=== PATIENT | female | born 1955 | race Caucasian/White ===

== ENCOUNTER → 2023-09-25 08:12 | Outpatient (REF) | payer BC, SELFPAY | LOC: HWRAD 08:12 | PROVIDERS: ATTENDING PHYSICIAN Physician Assistant | DX: R91.1 Solitary pulmonary nodule (principal) | CPT/HCPCS: 71250 ==

== ENCOUNTER → 2024-03-13 07:42 | Outpatient (REF) | payer BC, SELFPAY ==
[2024-03-13 09:25] LABS: % Basophils 0.7 % (0-2); % Eosinophils 1.8 % (0-6); % Immature Granulocytes 0.4 % (0-0.5); % Lymphocytes 18.4 % (20.5-51.1); % Monocytes 5.6 % (1.7-9.3); % Neutrophils 73.1 % (42.2-75.2); Absolute Basophils 0.1 10^3/uL (0-0.2); Absolute Eosinophils 0.2 10^3/uL (0-0.7); Absolute Lymphocytes 1.6 10^3/uL (1.2-3.4); Absolute Monocytes 0.5 10^3/uL (0.1-0.6); Absolute Neutrophils 6.2 10^3/uL (1.4-6.5); Hematocrit 41.3 % (37.0-47.0); Hemoglobin 14.8 g/dL (12.0-16.0); Mean Corp Hgb Conc. 35.8 g/dL (33.0-37.0); Mean Corpuscular Hgb 30.6 pg (27.0-31.0); Mean Corpuscular Volume 85.5 fL (81.0-99.0); Mean Platelet Volume 9.2 fL (7.4-10.4); Nucleated Red Blood Cells % 0 %; Platelet Count 218 10^3/uL (130-400); Red Blood Cell Count 4.83 10^6/uL (4.20-5.40); Red Cell Dist. Width 12.8 % (11.5-14.5); White Blood Cell Count 8.4 10^3/uL (4.8-10.8)
[2024-03-13 10:34] LABS: TSH Reflex To Free T4 3.03 uIU/ml (0.47-4.68)
[2024-03-13 11:26] LABS: ALT (SGPT) 28 U/L (0-35); AST (SGOT) 25 U/L (14-36); Albumin 4.5 g/dl (3.5-5.0); Alkaline Phosphatase 82 U/L (38-126); Blood Urea Nitrogen 15 mg/dl (7-17); Calcium 9.8 mg/dl (8.4-10.2); Carbon Dioxide 27 mmol/L (22-30); Chloride 103 mmol/L (98-107); Glucose 137 mg/dl (70-99); HDL Cholesterol 59 mg/dl; LDL Cholesterol, Calculated 145 mg/dl; Potassium 4.9 mmol/L (3.5-5.1); Sodium 142 mmol/L (135-145); Total Cholesterol 229 mg/dl (50-199); Total Protein 7.3 g/dl (6.3-8.2); Triglyceride 125 mg/dl (10-149); Very Low Density Lipoprotein 25 mg/dl (0-30); eGFR > 60.00
[2024-03-13 13:15] LABS: Glycohemoglobin (HgbA1c) 5.8 % (4.0-5.6)
== END ==
LOC: HWLAB 07:42
PROVIDERS: ATTENDING PHYSICIAN Physician Assistant
DX: R73.01 Impaired fasting glucose (principal); J45.40 Moderate persistent asthma, uncomplicated; E66.9 Obesity, unspecified; I10 Essential (primary) hypertension; Z13.29 Encounter for screening for other suspected endocrine disorder; Z13.220 Encounter for screening for lipoid disorders
CPT/HCPCS: 36415; 80053; 80061; 83036; 84443; 85025

== ENCOUNTER → 2024-03-17 07:04 | Outpatient (REF) | payer BC, SELFPAY | LOC: HWWDC 07:04 | PROVIDERS: ATTENDING PHYSICIAN Physician Assistant; REFERRING PHYSICIAN Obstetrics & Gynecology Gynecology | DX: Z12.31 Encounter for screening mammogram for malignant neoplasm of breast (principal) | CPT/HCPCS: 77063; 77067 ==

== ENCOUNTER → 2024-05-05 11:55 | Outpatient (REF) | payer BC, SELFPAY ==
[2024-05-14 01:10] LABS: HPV, High Risk Not Detected; HPV, High Risk Source Cervical
== END ==
LOC: CPAP 11:55
PROVIDERS: ATTENDING PHYSICIAN Obstetrics & Gynecology Gynecology
DX: Z01.419 Encounter for gynecological examination (general) (routine) without abnormal findings (principal)
CPT/HCPCS: 87624; G0123

== ENCOUNTER → 2024-05-12 11:44 | Outpatient (REF) | payer BC, SELFPAY | LOC: HWCARD 11:44 | PROVIDERS: ATTENDING PHYSICIAN Physician Assistant | DX: R07.89 Other chest pain (principal) | CPT/HCPCS: 93005 ==

== ENCOUNTER → 2024-05-13 13:52 | Outpatient (REF) | payer BC, SELFPAY | LOC: HWRCS 13:52 | PROVIDERS: ATTENDING PHYSICIAN Physician Assistant; REFERRING PHYSICIAN Internal Medicine | DX: R07.89 Other chest pain (principal); R94.31 Abnormal electrocardiogram [ECG] [EKG]; I10 Essential (primary) hypertension | CPT/HCPCS: 93017; 93306 ==

== ENCOUNTER → 2024-05-27 08:10 | Outpatient (REF) | payer BC, SELFPAY | LOC: HWRAD 08:10 | PROVIDERS: ATTENDING PHYSICIAN Obstetrics & Gynecology Gynecology; FAMILY PHYSICIAN Physician Assistant | DX: N83.209 Unspecified ovarian cyst, unspecified side (principal) | CPT/HCPCS: 76830; 76856 ==

== ENCOUNTER 2024-06-25 06:09 | Day surgery (SDC) | payer BC, SELFPAY ==
[2024-06-25 06:10] VITALS: BMI 31.6
[2024-06-25 06:12] VITALS: BP 139/82
[2024-06-25] MEDS: ALCAINE 0.5% EYE DROPS 1 DROP OPHTH (06:17)
[2024-06-25] MEDS: NEO-SYNEPHRINE 2.5% OPH SOL. 1 DROP OPHTH ×3 (06:18→06:35)
[2024-06-25] MEDS: MYDRIACYL 1 DROP OPHTH ×3 (06:18→06:35)
[2024-06-25] MEDS: PRED FORTE 1% EYE DROPS 1 DROP OPHTH ×3 (06:18→06:35)
[2024-06-25] MEDS: POLYTRIM OPHTHALMIC SOLUTION 1 DROP OPHTH ×3 (06:18→06:35)
[2024-06-25] MEDS: ACUVAIL 10 DROPS OPHTH ×3 (06:19→06:36)
[2024-06-25] MEDS: CYCLOGYL 1% EYE DROPS 1 DROP OPHTH ×3 (06:19→06:36)
[2024-06-25] MEDS: AKTEN OPHTHALMIC GEL 1 ML OPHTH (06:36)
[2024-06-25 07:45] VITALS: BP 138/66
[2024-06-25 08:00] VITALS: BP 130/70
== END 2024-06-25 08:13 | disposition home or self-care (01) ==
LOC: SDS 06:09
PROVIDERS: ATTENDING PHYSICIAN Ophthalmology
DX: H25.11 Age-related nuclear cataract, right eye (principal)
CPT/HCPCS: 66984; V2632

== ENCOUNTER → 2024-07-04 12:58 | Outpatient (REF) | payer BC, SELFPAY | LOC: MRI 3T 12:58 | PROVIDERS: ATTENDING PHYSICIAN Obstetrics & Gynecology Gynecology; FAMILY PHYSICIAN Physician Assistant | DX: N83.209 Unspecified ovarian cyst, unspecified side (principal) | CPT/HCPCS: 72197 ==

== ENCOUNTER 2024-07-09 06:10 | Day surgery (SDC) | payer BC, SELFPAY ==
[2024-07-09 06:12] VITALS: BMI 31.6
[2024-07-09 06:13] VITALS: BMI 31.6
[2024-07-09 06:14] VITALS: BP 138/80
[2024-07-09] MEDS: ALCAINE 0.5% EYE DROPS 1 DROP OPHTH (06:17)
[2024-07-09] MEDS: NEO-SYNEPHRINE 2.5% OPH SOL. 1 DROP OPHTH ×2 (06:17→06:32)
[2024-07-09] MEDS: CYCLOGYL 1% EYE DROPS 1 DROP OPHTH ×3 (06:17→06:32)
[2024-07-09] MEDS: ACUVAIL 10 DROPS OPHTH ×2 (06:17→06:27)
[2024-07-09] MEDS: MYDRIACYL 1 DROP OPHTH ×3 (06:17→06:32)
[2024-07-09] MEDS: PRED FORTE 1% EYE DROPS 1 DROP OPHTH ×3 (06:17→06:32)
[2024-07-09] MEDS: POLYTRIM OPHTHALMIC SOLUTION 1 DROP OPHTH ×3 (06:18→06:32)
[2024-07-09] MEDS: ACUVAIL 1 DROPS OPHTH (06:33)
[2024-07-09] MEDS: AKTEN OPHTHALMIC GEL 1 ML OPHTH (06:34)
[2024-07-09 07:45] VITALS: BP 143/77
== END 2024-07-09 08:10 | disposition home or self-care (01) ==
LOC: SDS 06:10
PROVIDERS: ATTENDING PHYSICIAN Ophthalmology
DX: H25.12 Age-related nuclear cataract, left eye (principal)
CPT/HCPCS: 66984; V2632

== ENCOUNTER → 2025-03-12 07:48 | Outpatient (REF) | payer OTHER, SELFPAY ==
[2025-03-12 09:52] LABS: ALT (SGPT) 24 U/L (0-35); AST (SGOT) 21 U/L (14-36); Albumin 4.6 g/dl (3.5-5.0); Alkaline Phosphatase 70 U/L (38-126); Blood Urea Nitrogen 10 mg/dl (7-17); Calcium 9.5 mg/dl (8.4-10.2); Carbon Dioxide 26 mmol/L (22-30); Chloride 104 mmol/L (98-107); Glucose 88 mg/dl (70-99); HDL Cholesterol 77 mg/dl; LDL Cholesterol, Calculated 87 mg/dl; Potassium 4.3 mmol/L (3.5-5.1); Sodium 137 mmol/L (135-145); Total Protein 7.4 g/dl (6.3-8.2); Very Low Density Lipoprotein 15 mg/dl (0-30); eGFR > 60.00
[2025-03-12 09:56] LABS: Hematocrit 39.7 % (37.0-47.0); Hemoglobin 14.2 g/dL (12.0-16.0); Mean Corp Hgb Conc. 35.8 g/dL (33.0-37.0); Mean Corpuscular Volume 86.9 fL (81.0-99.0); Nucleated Red Blood Cells % 0 %; Platelet Count 188 10^3/uL (130-400); Red Cell Dist. Width 12.6 % (11.5-14.5)
[2025-03-12 10:37] LABS: Glycohemoglobin (HgbA1c) 4.6 % (4.0-5.6)
== END ==
LOC: HWLAB 07:48
PROVIDERS: ATTENDING PHYSICIAN Physician Assistant
DX: I10 Essential (primary) hypertension (principal); J45.40 Moderate persistent asthma, uncomplicated; J44.9 Chronic obstructive pulmonary disease, unspecified; E66.9 Obesity, unspecified; J30.9 Allergic rhinitis, unspecified; E78.2 Mixed hyperlipidemia
CPT/HCPCS: 36415; 80053; 80061; 83036; 84443; 85025

== ENCOUNTER → 2025-05-07 07:23 | Outpatient (REF) | payer OTHER, SELFPAY | LOC: HWWDC 07:23 | PROVIDERS: ATTENDING PHYSICIAN Obstetrics & Gynecology Gynecology; FAMILY PHYSICIAN Physician Assistant; REFERRING PHYSICIAN Surgery | DX: Z12.31 Encounter for screening mammogram for malignant neoplasm of breast (principal) | CPT/HCPCS: 77063; 77067 ==

== ENCOUNTER → 2025-05-22 11:06 | Outpatient (REF) | payer OTHER, SELFPAY | LOC: WDC 11:06 | PROVIDERS: ATTENDING PHYSICIAN Obstetrics & Gynecology Gynecology; FAMILY PHYSICIAN Physician Assistant | DX: R92.2 Inconclusive mammogram (principal) | CPT/HCPCS: 76641 ==

== ENCOUNTER → 2025-05-22 13:27 | Outpatient (REF) | payer OTHER, SELFPAY | LOC: HWRAD 13:27 | PROVIDERS: ATTENDING PHYSICIAN Obstetrics & Gynecology Gynecology; FAMILY PHYSICIAN Physician Assistant | DX: N83.209 Unspecified ovarian cyst, unspecified side (principal) | CPT/HCPCS: 76830; 76856 ==

== ENCOUNTER → 2025-05-25 10:00 | Outpatient (REF) | payer OTHER, SELFPAY ==
[2025-05-25 18:00] LABS: Urine Character Cloudy (Clear)
[2025-05-25 18:23] LABS: Urine White Cell >100 /HPF (0-5)
== END ==
LOC: CLAB 10:00
PROVIDERS: ATTENDING PHYSICIAN Student in an Organized Health Care Education/Training Program
DX: R39.9 Unspecified symptoms and signs involving the genitourinary system (principal)
CPT/HCPCS: 81003; 81015; 87086

== ENCOUNTER → 2025-06-01 07:35 | Outpatient (REF) | payer OTHER, SELFPAY | LOC: HWRAD 07:35 | PROVIDERS: ATTENDING PHYSICIAN Obstetrics & Gynecology Gynecology; FAMILY PHYSICIAN Physician Assistant | DX: Z78.0 Asymptomatic menopausal state (principal) | CPT/HCPCS: 77080 ==